=== PATIENT | female | born 1950 | race African-American/Black ===

== ENCOUNTER 2024-11-29 10:49 | Inpatient (IN) | payer MEDICARE, MEDICAID ==
[~2024-11-29] VITALS: Ht 157.5 cm; Wt 70.8 kg
[~2024-11-29 10:49] MED LIST: AMOX125S12 PO; BENA10TA74 PO; BUPR75TA8 PO; GABA300S4 PO; METH-773 PO; TRAM50TA3 PO; TRAZ150T78 PO; ZIPR80CA2 PO
[2024-11-29] MEDS: ONDANSETRON HCL 4MG/2ML INJ IV ONE (11:18)
[2024-11-29 11:49] LABS: BASOPHILS % 0.7 % (0.0-2.0); DIFFERENTIAL COMMENT 0; EOSINOPHILS % 1.3 % (0.0-5.0); LYMPHOCYTES % 20.2 % (20.0-50.0); MEAN CORPUSCULAR HEMOGLOBIN 21.6 pg (28.0-32.0); MEAN CORPUSCULAR HGB CONC 29.9 g/dL (31.0-37.0); MEAN CORPUSCULAR VOLUME 72.3 fL (81.0-99.0); MEAN PLATELET VOLUME 7.2 fl (7.4-10.4); MONOCYTES % 10.2 % (2.0-8.0); NEUTROPHILS % 67.6 % (40.0-76.0); PLATELET 400 x1000/uL (130-400); RED BLOOD CELL COUNT 2.64 mill/uL (4.2-5.4); WHITE BLOOD COUNT 5.5 x1000/uL (4.5-11.0)
[2024-11-29 11:58] LABS: CHLORIDE 111 mEq/L (98-107); POTASSIUM 4.4 mEq/L (3.5-5.1); SODIUM 145 mEq/L (136-145)
[2024-11-29 11:59] LABS: CALCIUM 9.2 mg/dL (8.7-10.4); CARBON DIOXIDE 24 mEq/L (21-32)
[2024-11-29 12:04] LABS: CREATININE 1.6 mg/dL (0.6-1.0); GLUCOSE 112 mg/dL (70-105); TROPONIN I HIGH SENSITIVITY 31 ng/L (3.0-34); UREA NITROGEN BLOOD 25 mg/dL (9-23)
[2024-11-29 12:06] LABS: ALANINE AMINOTRANSFERASE 27 IU/L (10-49); ALBUMIN 3.5 g/dL (3.2-4.8); ASPARTATE AMINOTRANSFERASE 42 IU/L (<34); BILIRUBIN DIRECT 0.2 mg/dL (<=3.0)
[2024-11-29 12:07] LABS: BILIRUBIN TOTAL 0.4 mg/dL (0.1-1.0); PROTEIN TOTAL 6.1 g/dL (6.0-8.3)
[2024-11-29 12:14] LABS: HEMATOCRIT. 19.1 % (36.0-48.0); HEMOGLOBIN. 5.7 g/dL (12.0-16.0)
[2024-11-29] MEDS: FUROSEMIDE 40MG/4ML VIAL IVP ONE (13:20)
[2024-11-29 15:42] LABS: TROPONIN I HIGH SENSITIVITY 34 ng/L (3.0-34)
[2024-11-29] MEDS ORDERED: ONDANSETRON HCL 4MG/2ML INJ IV PRN (15:45)
[2024-11-29 17:04] VITALS: BP 150/76; PULSE 94; RESP 18; TEMP 36.5; O2SAT 99
[2024-11-29] MEDS: AZITHROMYCIN 500 MG TABLET PO NR (17:18)
[2024-11-29] MEDS: AMLODIPINE 5MG TABLET PO SCH (17:18)
[2024-11-29 17:42] LABS: CLARITY URINE CLEAR (CLEAR); COLOR URINE YELLOW (YELLOW); GLUCOSE URINE NEGATIVE (NEGATIVE); KETONES URINE NEGATIVE (NEGATIVE); LEUKOCYTE ESTERASE URINE NEGATIVE (NEGATIVE); NITRITE URINE NEGATIVE (NEGATIVE); OCCULT BLOOD URINE NEGATIVE (NEGATIVE); PROTEIN URINE NEGATIVE (NEGATIVE); SPECIFIC GRAVITY URINE 1.007 (1.005-1.030); UROBILINOGEN URINE 0.2 E.U./dL (0.2-1.0)
[2024-11-29 18:05] VITALS: BP 150/76; PULSE 94; RESP 18; TEMP 36.5
[2024-11-29] MEDS: CEFTRIAXONE 1GM/50ML 50 ML IV SCH (18:57)
[2024-11-29] MEDS: ACETAMINOPHEN 325MG TABLET PO PRN (19:12)
[2024-11-29 20:00] VITALS: BP 146/72; PULSE 81; RESP 19; TEMP 36.4; O2SAT 98
[2024-11-29 22:00] VITALS: BP 136/66; PULSE 94; RESP 20; TEMP 36.22512
[2024-11-30] VITALS (7 sets, daily range): BP systolic 132–152; BP diastolic 56–80; PULSE 66–94; RESP 15–20; TEMP 36.1–36.9; O2SAT 94–99
[2024-11-30 01:49] LABS: HEMATOCRIT 24.3 % (36.0-48.0); HEMOGLOBIN 7.3 g/dL (12.0-16.0)
[2024-11-30] MEDS: FUROSEMIDE 40MG/4ML VIAL IVP SCH (08:20)
[2024-11-30] MEDS: AMLODIPINE 10MG TABLET PO SCH (08:20)
[2024-11-30] MEDS: AZITHROMYCIN 250 MG TABLET PO SCH (08:20)
[2024-11-30] MEDS: PERMETHRIN 5% CREAM 60GM TOP NR (12:31)
[2024-11-30] MEDS: DIATR MEGLU/DIATRIZOATE SOLN 30ML PO SCH (17:26)
[2024-11-30] MEDS: CEFTRIAXONE 1GM/50ML 50 ML IV SCH (20:40)
[2024-11-30 21:49] LABS: BASOPHILS % 0.4 % (0.0-2.0); EOSINOPHILS % 0.8 % (0.0-5.0); HEMATOCRIT. 24.2 % (36.0-48.0); HEMOGLOBIN. 7.5 g/dL (12.0-16.0); LYMPHOCYTES % 14.2 % (20.0-50.0); MEAN CORPUSCULAR HEMOGLOBIN 23.7 pg (28.0-32.0); MEAN CORPUSCULAR VOLUME 76.6 fL (81.0-99.0); MEAN PLATELET VOLUME 6.9 fl (7.4-10.4); MONOCYTES % 10.2 % (2.0-8.0); NEUTROPHILS % 74.4 % (40.0-76.0); PLATELET 356 x1000/uL (130-400); RED BLOOD CELL COUNT 3.15 mill/uL (4.2-5.4); RED CELL DISTRIBUTION WIDTH 22.4 % (11.6-14.6)
[2024-11-30 21:50] LABS: DIFFERENTIAL COMMENT 1
[2024-11-30 21:59] LABS: CALCIUM 9.4 mg/dL (8.7-10.4)
[2024-11-30 22:03] LABS: CREATININE 1.4 mg/dL (0.6-1.0)
[2024-11-30] MEDS ORDERED: HYDROCODONE/ACETAMINOPHEN 10/325MG TABLET PO PRN (23:00)
[2024-11-30] MEDS ORDERED: NALOXONE HCL 0.4MG/ML VIAL IV PRN (23:15)
[2024-12-01] VITALS: BP 130/60; PULSE 89; RESP 19; TEMP 36.1; O2SAT 97
[2024-12-01 04:00] VITALS: BP 136/70; PULSE 80; RESP 19; TEMP 36.6; O2SAT 99
[2024-12-01 07:27] LABS: INR 1.1; PROTHROMBIN TIME 11.9 sec (9.6-11.0)
[2024-12-01 07:30] LABS: CARBON DIOXIDE 30 mEq/L (21-32); CHLORIDE 106 mEq/L (98-107); POTASSIUM 3.9 mEq/L (3.5-5.1); SODIUM 144 mEq/L (136-145)
[2024-12-01 07:31] LABS: CALCIUM 9.7 mg/dL (8.7-10.4)
[2024-12-01 07:35] LABS: CREATININE 1.4 mg/dL (0.6-1.0); GLUCOSE 107 mg/dL (70-105); IRON 14 ug/dL (50-170)
[2024-12-01 07:36] LABS: UREA NITROGEN BLOOD 17 mg/dL (9-23)
[2024-12-01 07:38] LABS: FERRITIN 7 ng/mL (10-291); FOLIC ACID (FOLATE) SERUM 9.15 ng/mL (>5.38); PHOSPHORUS 3.8 mg/dL (2.5-4.9); TOTAL IRON BINDING CAPACITY 199 ug/dl (250-425)
[2024-12-01 07:39] LABS: VITAMIN B12 SERUM 826 pg/mL (211-911)
[2024-12-01 07:52] LABS: BASOPHILS % 0.9 % (0.0-2.0); EOSINOPHILS % 0.8 % (0.0-5.0); HEMATOCRIT. 25.2 % (36.0-48.0); HEMOGLOBIN. 7.7 g/dL (12.0-16.0); LYMPHOCYTES % 12.3 % (20.0-50.0); MEAN CORPUSCULAR HEMOGLOBIN 23.1 pg (28.0-32.0); MEAN CORPUSCULAR HGB CONC 30.4 g/dL (31.0-37.0); MEAN CORPUSCULAR VOLUME 75.9 fL (81.0-99.0); MONOCYTES % 9.1 % (2.0-8.0); NEUTROPHILS % 76.9 % (40.0-76.0); PLATELET 353 x1000/uL (130-400); RED BLOOD CELL COUNT 3.32 mill/uL (4.2-5.4); RED CELL DISTRIBUTION WIDTH 22.6 % (11.6-14.6)
[2024-12-01 08:00] VITALS: BP 148/72; PULSE 75; RESP 20; TEMP 36.5; O2SAT 99
[2024-12-01 09:27] LABS: ADD RBC MORPHOLOGY YES; DIFFERENTIAL COMMENT 1
[2024-12-01 12:00] VITALS: BP 130/71; PULSE 82; RESP 20; TEMP 36.6; O2SAT 94
[2024-12-01 16:00] VITALS: BP 139/72; PULSE 79; RESP 20; TEMP 36.6; O2SAT 94
[2024-12-01 20:00] VITALS: BP 129/51; PULSE 79; RESP 20; TEMP 37; O2SAT 100
[2024-12-01 20:05] LABS: ANISOCYTOSIS 1+; HYPOCHROMASIA 1+; MICROCYTOSIS 1+; PLATELET ESTIMATE NORMAL
[2024-12-02] VITALS: BP 125/60; PULSE 80; RESP 20; TEMP 36.7; O2SAT 98
[2024-12-02 04:00] VITALS: BP 130/67; PULSE 88; RESP 20; TEMP 36.6; O2SAT 99
[2024-12-02] MEDS ORDERED: ARIP10TA86 PO (05:07)
[2024-12-02 06:46] LABS: INR 1.1; PROTHROMBIN TIME 11.7 sec (9.6-11.0)
[2024-12-02 07:23] LABS: POTASSIUM 3.7 mEq/L (3.5-5.1)
[2024-12-02 07:24] LABS: CALCIUM 9.7 mg/dL (8.7-10.4)
[2024-12-02 07:29] LABS: CREATININE 1.2 mg/dL (0.6-1.0)
[2024-12-02 08:00] VITALS: BP 160/74; PULSE 90; RESP 18; TEMP 36.8; O2SAT 95
[2024-12-02 08:23] LABS: EOSINOPHILS % 2.3 % (0.0-5.0); HEMATOCRIT. 25.7 % (36.0-48.0); HEMOGLOBIN. 7.9 g/dL (12.0-16.0); LYMPHOCYTES % 18.2 % (20.0-50.0); MEAN CORPUSCULAR HEMOGLOBIN 23.3 pg (28.0-32.0); MEAN CORPUSCULAR HGB CONC 30.7 g/dL (31.0-37.0); MEAN CORPUSCULAR VOLUME 75.9 fL (81.0-99.0); MONOCYTES % 9.4 % (2.0-8.0); NEUTROPHILS % 69.1 % (40.0-76.0); PLATELET 244 x1000/uL (130-400); RED BLOOD CELL COUNT 3.38 mill/uL (4.2-5.4); RED CELL DISTRIBUTION WIDTH 22.6 % (11.6-14.6); WHITE BLOOD COUNT 8.3 x1000/uL (4.5-11.0)
[2024-12-02 08:45] LABS: DIFFERENTIAL COMMENT 1
[2024-12-02 12:00] VITALS: BP 138/70; PULSE 87; RESP 18; TEMP 36.2; O2SAT 98
[2024-12-02] MEDS ORDERED: NON FORMULARY MED INJ SCH (12:00)
[2024-12-02] MEDS: IRON SUCROSE COMPLEX 100 MG/5 ML ML IV SCH (12:22)
[2024-12-02 16:00] VITALS: BP 132/80; PULSE 88; RESP 18; TEMP 36.5; O2SAT 98
[2024-12-02] MEDS: LACTULOSE 20G/30ML UDC PO NR (16:56)
[2024-12-02 20:00] VITALS: BP 149/78; PULSE 80; RESP 20; TEMP 36.6; O2SAT 96
[2024-12-02] MEDS: DOCUSATE SODIUM 100MG CAPSULE PO SCH (20:21)
[2024-12-02] MEDS: SENNOSIDES 8.6MG TABLET PO SCH (20:21)
[2024-12-03] VITALS: BP 129/54; PULSE 88; RESP 18; TEMP 37.1; O2SAT 100
[2024-12-03 04:00] VITALS: BP 151/67; PULSE 87; RESP 20; TEMP 36.7; O2SAT 100
[2024-12-03] MEDS ORDERED: *PATIENT'S OWN MEDICATION STORAGE XX SCH (04:45)
[2024-12-03 06:27] LABS: HEMATOCRIT. 26.5 % (36.0-48.0); HEMOGLOBIN. 8.1 g/dL (12.0-16.0); MEAN CORPUSCULAR HEMOGLOBIN 22.9 pg (28.0-32.0); MEAN CORPUSCULAR HGB CONC 30.6 g/dL (31.0-37.0); MEAN CORPUSCULAR VOLUME 74.9 fL (81.0-99.0); MEAN PLATELET VOLUME 7.1 fl (7.4-10.4); PLATELET 354 x1000/uL (130-400); RED BLOOD CELL COUNT 3.53 mill/uL (4.2-5.4); RED CELL DISTRIBUTION WIDTH 22.9 % (11.6-14.6); WHITE BLOOD COUNT 7.3 x1000/uL (4.5-11.0)
[2024-12-03 06:32] LABS: POTASSIUM 3.2 mEq/L (3.5-5.1)
[2024-12-03 06:34] LABS: CALCIUM 9.3 mg/dL (8.7-10.4)
[2024-12-03 06:38] LABS: CREATININE 1.2 mg/dL (0.6-1.0); DIFFERENTIAL COMMENT 1
[2024-12-03 08:00] VITALS: BP 156/82; PULSE 90; RESP 18; TEMP 36.7; O2SAT 98
[2024-12-03] MEDS ORDERED: FURO-151 MT (11:04)
[2024-12-03] MEDS ORDERED: POTA-205 MT (11:04)
[2024-12-03] MEDS: POTASSIUM CHLORIDE 20MEQ TABLET SR PO NR (11:41)
[2024-12-03 12:00] VITALS: BP 138/70; PULSE 87; RESP 18; TEMP 36.2; O2SAT 98
[2024-12-03 13:48] VITALS: BP 138/41; PULSE 91; TEMP 97.1; O2SAT 98
[2024-12-03 23:08] LABS: ANISOCYTOSIS 1+; HYPOCHROMASIA 1+; MICROCYTOSIS 2+; PLATELET ESTIMATE NORMAL
== END 2024-12-03 17:34 | disposition home or self-care (01) | DRG 291 ==
LOC: ER 10:49 → 8WST 12:14
PROVIDERS: ADMIT Internal Medicine; ATTEND Internal Medicine
PROC: 30233N1 Transfusion of Nonautologous Red Blood Cells into Peripheral Vein, Percutaneous Approach (ICD-10-PCS; principal; 2024-11-29)
DX: I11.0 Hypertensive heart disease with heart failure (principal); I50.33 Acute on chronic diastolic (congestive) heart failure; J18.9 Pneumonia, unspecified organism; N17.9 Acute kidney failure, unspecified; J45.909 Unspecified asthma, uncomplicated; D50.9 Iron deficiency anemia, unspecified; K57.30 Diverticulosis of large intestine without perforation or abscess without bleeding; F17.210 Nicotine dependence, cigarettes, uncomplicated; D17.79 Benign lipomatous neoplasm of other sites; Z78.9 Other specified health status
CPT/HCPCS: 36415; 71045; 71250; 74176; 80048; 80076; 81003; 82378; 82607; 82728; 82746; 83540; 83550; 83735; 84100; 84484; 85014; 85018; 85025; 85044; 86850; 86900; 86920; 93005; 93306; 99291; A4606; A4663; C1893; J0696; J1940; J2405; P9016; Q9963